=== PATIENT | female | born 1995 | race Caucasian/White ===

== ENCOUNTER 2021-09-02 16:26 | Emergency (ER) | payer MEDICAID, SELFPAY ==
[2021-09-02 16:45] VITALS: BP 119/68; PULSE 86; RESP 18; TEMP 37.3; O2SAT 100; BMI 41.1
[2021-09-02 17:36] LABS: MANUAL DIFF FLAG NO
[2021-09-02 17:58] LABS: Anion Gap 12 (12-20); Blood Urea Nitrogen 13 mg/dL (9-16); Calcium 9.4 mg/dL (8.4-10.2); Carbon Dioxide 27 mmol/L (22-29); Chloride 107 mmol/L (96-108); Creatinine Clr Calc Pharmacy 136.3; Estimated Glomerular Filt Rate > 60; Glucose Random 98 mg/dL (60-115); Potassium 4.7 mmol/L (3.3-5.1); Sodium 141 mmol/L (135-145)
[2021-09-02 18:06] LABS: Basophils Percent Auto 0.4 % (0-2); Eosinophils Absolute Auto 0.1 X10*3/uL (0.0-0.4); Eosinophils Percent Auto 0.8 % (0-4); Hematocrit 40.5 % (37.0-47.0); Hemoglobin 13.8 g/dl (12.0-16.0); Imm Gran Abs Auto 0.03 X10*3/uL (0.00-0.03); Imm Gran Pct Auto 0.4 % (0.0-0.4); Lymphocytes Absolute Auto 2.5 X10*3/uL (1.2-4.9); Lymphocytes Percent Auto 34.4 % (20-40); Mean Corpuscular HGB Conc 34.1 g/dl (31.0-35.0); Mean Corpuscular Hemoglobin 30.4 pg (27.0-33.0); Mean Corpuscular Volume 89.2 fL (80.0-98.0); Mean Platelet Volume 10.5 fL (9.4-12.3); Monocytes Absolute Auto 0.5 X10*3/uL (0.1-1.2); Monocytes Percent Auto 7.4 % (2-11); Neutrophils Absolute Auto 4.1 x10*3/uL (2.0-8.3); Neutrophils Percent Auto 56.6 % (45-73); Platelet Count 297 X10*3/uL (160-400); Red Blood Count 4.54 X10*6/uL (4.20-5.50); Red Cell Distribution Width 12.4 % (11.0-16.0); White Blood Count 7.2 X10*3/uL (4.8-10.8)
[2021-09-02 18:37] VITALS: BP 128/75; PULSE 92; RESP 17; TEMP 37.1; O2SAT 100
[2021-09-02 18:49] LABS: COVID-19 Test Positive (Negative); IDNOW Serial# 9DD0AD1C
[2021-09-02 19:04] LABS: HCG Quantitative < 2 mIU/mL
--- NOTE | 2021-09-02 19:19 | ED.NAVMDI ---
HPI - Nausea/Vomiting/Diarrhea General Chief complaint: Nausea/Vomiting/Diarrhea Stated complaint: nausea, dehydration, fatigue, diarrhea Time Seen by Provider: 09/02/21 18:39 Source: patient Mode of arrival: ambulatory Limitations: no limitations History of Present Illness HPI Narrative: Patient presents to ED for nausea and diarrhea for the past 3 days. Patient denies any abdominal pain, chest pain, shortness of breath, coughing, fever, or chills. Patient states she recently finished her clindamycin prescription. Patient not vaccinated against COVID Related Data Allergies Allergy/AdvReac Type Severity Reaction Status Date / Time No Known Allergies Allergy Verified 09/02/21 16:45 Review of Systems Review of Systems: Nausea, diarrhea Yes all other systems are reviewed and are negative [facility] Past Medical History Medical History (Updated 09/02/21 @ 19:27 by ASAEL Murillo) Anxiety Depression Gallstone Social History Social History Advance Directives: No Advance Directives Information Provided: Yes Patient : No Physical Exam Vital Signs: Vital Signs: Last Vital Signs Temp 98.7 F 09/02/21 18:37 Pulse 92 09/02/21 18:37 Resp 17 09/02/21 18:37 BP 128/75 09/02/21 18:37 Pulse Ox 100 09/02/21 18:37 BMI result Body Mass Index 41.1 Const: General: cooperative, healthy appearing, comfortable, no acute distress, well developed, alert, awake and Physically active Orientation/consciousness: oriented to person, oriented to place, oriented to time and patient oriented x3 HENMT: Head: Yes normal to inspection, Yes No palpable skull fracture present, Yes normocephalic and Yes atraumatic Eyes: General: appearance normal, both eyes and all related structures Neck: Neck: Yes normal visual inspection, Yes full ROM, Yes no lymphadenopathy, Yes no meningeal signs, Yes trachea midline, Yes supple, No anterior neck swelling and No tender Chest: Chest palpation & inspection: normal inspection of the chest and normal palpation of entire chest wall Resp: Effort & Inspection: normal respiratory effort and able to speak in complete sentences Auscultation: clear to auscultation bilaterally Cardio: Jugular venous distension: no JVD Heart sounds: S1 normal heart sound present and S2 normal heart sound present GI: Inspection: Yes normal to inspection and No abdominal wall ecchymosis Palpation (GI): Soft to palpation, not firm, nontender, no guarding and not rigid : General: No CVA tenderness and Yes no CVA tenderness Back/Spine/Pelvis: Back: no CVA tenderness, No CVA tenderness and No back tenderness Skin: General skin exam: no rashes or lesions noted and elasticity normal Neuro: General: oriented to person, oriented to place, oriented to time, patient oriented x3, gait normal, tone normal, moves all extremities, Normal light touch and pain sensation, no meningeal signs and CN's II-XI intact bilaterally Extrem: General: Yes normal to inspection and Yes full ROM Psych: Appearance: grossly normal, well kempt and not disheveled Course Course Course Narrative: Labs and Covid swab ordered. Reevaluation(s) Reevaluation #1: Patient labs are normal. Patient COVID swab positive. Patient well-appearing. Patient is not toxic appearing. Patient is not vaccinated. Patient informed her taking clindamycin and then having diarrhea after put at risk for C diff so sample was requested to test for C diff for patient states she is not able to give a sample. She was informed to follow-up with primary care provider to form that she took clindamycin having diarrhea so he could tested for C diff. Patient educated on self-isolation and respiratory distress. Patient informed to return to the ED immediately if she has any respiratory distress symptoms Time: 19:25 MDM - Nausea/Vomiting/Diarrhea MDM Narrative Medical decision making narrative: COVID Lab Data Result diagrams: 09/02/21 17:28 09/02/21 17:28 Labs: Lab Results 09/02/21 09/02/21 09/02/21 Range/Units 17:28 17:28 18:34 WBC 7.2 (4.8-10.8) X10*3/uL RBC 4.54 (4.20-5.50) X10*6/uL Hgb 13.8 (12.0-16.0) g/dl Hct 40.5 (37.0-47.0) % MCV 89.2 (80.0-98.0) fL MCH 30.4 (27.0-33.0) pg MCHC 34.1 (31.0-35.0) g/dl RDW 12.4 (11.0-16.0) % Plt Count 297 (160-400) X10*3/uL MPV 10.5 (9.4-12.3) fL Immature Gran % (Auto) 0.4 (0.0-0.4) % Neut % (Auto) 56.6 (45-73) % Lymph % (Auto) 34.4 (20-40) % [place] % (Auto) 7.4 (2-11) % Eos % (Auto) 0.8 (0-4) % Baso % (Auto) 0.4 (0-2) % Lymph # (Auto) 2.5 (1.2-4.9) X10*3/uL [place] # (Auto) 0.5 (0.1-1.2) X10*3/uL Eos # (Auto) 0.1 (0.0-0.4) X10*3/uL Baso # (Auto) 0.0 (0.0-0.2) X10*3/uL Abs Immat Gran (auto) 0.03 (0.00-0.03) X10*3/uL Absolute Neuts (auto) 4.1 (2.0-8.3) x10*3/uL Absolute Nucleated RBC 0.000 (0.0-0.012) X10*3/uL Nucleated RBC % (auto) 0.0 (0.0-0.2) /100WBC Sodium 141 (135-145) mmol/L Potassium 4.7 (3.3-5.1) mmol/L Chloride 107 (96-108) mmol/L Carbon Dioxide 27 (22-29) mmol/L Anion Gap 12 (12-20) BUN 13 (9-16) mg/dL Creatinine 0.76 (0.5-1.4) mg/dL Estim Creat Clear Calc 136.3 Estimated GFR > 60 Random Glucose 98 (60-115) mg/dL Calcium 9.4 (8.4-10.2) mg/dL Beta HCG, Quant < 2 mIU/mL COVID-19 (GE) Positive A (Negative) COVID-19 Clin Com See Note Discharge Plan Discharge Clinical Impression: COVID-19 Patient Disposition: Home, Self-Care Instructions: COVID-19 (Coronavirus Disease 2019) (ED) Additional Instructions: You came back positive for COVID-19. Recommend self-isolation. Return to the ED immediately for any chest pain, shortness of breath, weakness, dizziness, calf pain, coughing up blood, abdominal pain, or any other concerning symptoms. You just finish taking clindamycin and now have diarrhea will still recommend follow-up with primary care provider to test for C diff. Interventions: ED Discharge Assessment Last Done: 09/02/21 19:40 Discharge Date/Time: 09/02/21 19:42 Print Language: Yakut
== END 2021-09-02 19:42 | disposition home or self-care (01) ==
PROVIDERS: Physician Assistant; Emergency Provider Internal Medicine
DX: U07.1 COVID-19 (principal); R11.0 Nausea; R19.7 Diarrhea, unspecified
CPT/HCPCS: 36415; 80048; 84702; 85025; 87635; 99283; 99284

== ENCOUNTER 2022-06-10 23:08 | Emergency (ER) | payer MEDICAID, SELFPAY ==
[2022-06-10 23:24] VITALS: BP 123/77; PULSE 102; RESP 16; TEMP 36.7; O2SAT 100; BMI 51.5
[2022-06-10 23:56] LABS: Hematocrit 38.9 % (37.0-47.0); Hemoglobin 12.9 g/dl (12.0-16.0); Mean Corpuscular HGB Conc 33.2 g/dl (31.0-35.0); Mean Corpuscular Hemoglobin 29.3 pg (27.0-33.0); Mean Corpuscular Volume 88.4 fL (80.0-98.0); Platelet Count 230 X10*3/uL (160-400); Red Cell Distribution Width 12.8 % (11.0-16.0); White Blood Count 9.7 X10*3/uL (4.8-10.8)
[2022-06-11 00:16] LABS: Alanine Aminotransferase 35 U/L (0-31); Alkaline Phosphatase 64 U/L (39-117); Anion Gap 15 (12-20); Aspartate Amino Transferase 22 U/L (5-31); Bilirubin Direct < 0.2 mg/dL (0.0-0.5); Bilirubin Total < 0.2 mg/dL (0.0-1.0); Blood Urea Nitrogen 11 mg/dL (9-16); Calcium 8.9 mg/dL (8.4-10.2); Carbon Dioxide 24 mmol/L (22-29); Chloride 104 mmol/L (96-108); Creatinine Clr Calc Pharmacy 165.3; Estimated Glomerular Filt Rate > 60; Glucose Random 101 mg/dL (60-115); Lipase 25 U/L (8-78); Potassium 4.6 mmol/L (3.3-5.1); Sodium 138 mmol/L (135-145); Total Protein 7.4 g/dL (6.5-8.0)
[2022-06-11 01:03] VITALS: BP 124/84; PULSE 96; RESP 11; TEMP 37; O2SAT 100
[2022-06-11 03:58] VITALS: BP 121/83; PULSE 92; RESP 14; TEMP 36.9; O2SAT 99
[2022-06-11 04:09] LABS: Appearance Urine Clear; Color Urine Yellow; Glucose Urine UA Negative (Negative); Leukocyte Esterase Urine Negative (Negative); Nitrite Urine Negative (Negative); PH 6.5 (5.0-9.0); Specific Gravity - Urine <= 1.005 (1.005-1.025); Urine Blood Negative (Negative); Urine Ketones Negative (Negative); Urine Protein Negative (Neg-Trace)
[2022-06-11 04:11] LABS: UPreg QC Valid YES; Urine Pregnancy NEGATIVE (NEGATIVE)
[2022-06-11 04:14] LABS: Bacteria Urine Trace (None Seen); Hyaline Casts Urine 0-2 /LPF (0-2); RBC Urine 0-2 /HPF (0-2); Squamous Epithelial Cell Urine 0-2 /HPF (0-2); WBC Urine 0-5 /HPF (0-5)
--- NOTE | 2022-06-11 04:35 | ED_ITS ---
HPI - Abdominal Pain General Chief Complaint: Abdominal Pain Stated Complaint: abd pain Time Seen by Provider: 06/11/22 04:16 Source: patient Mode of arrival: ambulatory Limitations: no limitations History of Present Illness HPI narrative: 27-year-old female who presents emergency department for evaluation abdominal pain. The patient states that she ate a meat cheese and let us Taco around 13:00 hours. She states that 30 minutes later she developed abdominal pain. She points to her epigastric and right upper quadrant area when asked to localize the pain. She states the pain is a constant, bloated sensation which is 5/10 at its worst. She states that she has been getting this pain for approximately 1-2 years. She states that she always feels bloated but it is always worse after she eats food. She states the pain will often last a couple hours or occurred when she eats her next meal. She denied fever, chills, vomiting. She states she does have nausea associated with the pain. She states she has constant diarrhea. Patient states that she has known gallstones. She has also had an ovarian cyst in the past. MD elicited complaint: abdominal pain Pertinent past history: other (Gallstones, ovarian cyst) Onset (ago): hour(s) (16 our prior to evaluation) Pain Consistency: constant Location: epigastric and RUQ Severity: moderate Pain scale (0-10): 5 Quality: fullness (Bloated feeling) and other Radiation: none Migration to: no migration Exacerbating factors: eating Relieving factors: nothing Associated symptoms: nausea and diarrhea (Chronic) Related Data Previous Rx's Medication Instructions Recorded aluminum hydrox-magnesium carb 254 10 ml PO QID PRN dyspepsia #355 mL 06/11/22 mg-237.5 mg/5 mL oral suspension (Gaviscon Extra Strength) omeprazole 20 mg capsule,delayed 20 mg PO DAILY 30 days #30 caps 06/11/22 release Allergies Allergy/AdvReac Type Severity Reaction Status Date / Time No Known Allergies Allergy Verified 09/02/21 16:45 Review of Systems Review of Systems Yes all other systems are reviewed and are negative [facility] Past Medical History [facility] Narrative: Past medical history: Reviewed below, ADHD, ovarian cyst. Past surgical history: Left ovarian cyst removal. Social history: The patient smokes 1/2 pack of cigarettes per day times 12 years. She rarely drinks alcohol. She denies drug use. Medical History (Updated 06/11/22 @ 04:49 by Varun Duran MD) Anxiety Depression Gallstone Social History Social History Smoked in Last 30 Days: Yes Use of substances other than those prescribed or required for medical reasons: No Advance Directives: No Advance Directives Information Provided: No Physical Exam ED Vital Signs: Vital Signs - 24 hr 06/10/22 23:24 06/11/22 01:03 06/11/22 03:58 Temperature 98.0 F 98.6 F 98.4 F Pulse Rate 102 H 96 92 Respiratory Rate 16 11 L 14 Blood Pressure 123/77 124/84 121/83 Pulse Oximetry 100 100 99 Oxygen Delivery Method Room Air Room Air Room Air BMI result Body Mass Index 51.5 Const Other: Awake, alert, female patient, pleasant, cooperative, no distress, answers all questions appropriately, elevated BMI 51.5 HENMT Head: Yes normal to inspection, Yes normocephalic and Yes atraumatic Ears: external ears normal General nose exam: Normal external nose present Face and sinus: Yes normal facial exam Mouth: Normal oral and palatal mucosa present Throat: Yes posterior oropharynx normal Eyes General: appearance normal, both eyes and all related structures Pupils: Equal, round and reactive pupils present Neck Neck: Yes normal visual inspection, Yes no lymphadenopathy, Yes trachea midline and Yes supple Chest Chest palpation & inspection: normal inspection of the chest and normal palpation of entire chest wall Resp Effort & Inspection: normal respiratory effort and able to speak in complete sentences Auscultation: clear to auscultation bilaterally Cardio Rate: regular rate Rhythm: regular rhythm Heart sounds: S1 normal heart sound present, S2 normal heart sound present and no murmurs GI Inspection: Yes normal to inspection Palpation (GI): Soft to palpation, Tenderness to palpation present (GI) in the epigastrum (Moderate) and in the RUQ (Moderate) and no guarding Auscultation: normal bowel sounds General: Yes no CVA tenderness Back/Spine/Pelvis Back: no CVA tenderness Skin General skin exam: no rashes or lesions noted Neuro Cranial nerves: Yes CN's II-XII intact bilaterally and Yes Equal, round and reactive pupils present Cognition (Neuro): normal cognition Motor exam (neuro): 5/5 motor strength present throughout Extrem General: Yes normal to inspection Psych Appearance: grossly normal Speech and movement: Normal speech and movement present Affect: normal affect Attitude: cooperative Thought process: Normal thought process present Thought content: Normal thought content present Course Course Course Narrative: 27-year-old female who presents emergency department for evaluation of epigastric and right upper quadrant pain which occurred approximately 30 minutes after eating a cheese meat lettuce Taco. Patient states she has had similar pain over the past 1-2 years and she often gets this pain immediately after eating. She describes the pain is a bloated sensation which was 5/10. The pain was associated with nausea. She did not have any radiation of pain to her shoulder or back. She also states she has chronic diarrhea the patient's laboratory evaluation included a CBC, CMP and lipase, all of these tests were normal. Urinalysis was negative in your test was negative. Given the relatively fast onset of her pain after eating, I suspect that the pain is caused by gastritis I did discuss this with her. She does have known gallstones but I think that the pain is less likely to be caused by biliary colic. The patient was started on Prilosec 20 mg once a day for 1 month. She was also given a prescription for Gaviscon 1 dose after meals as needed for pain. Patient will need to follow-up with her PCP and our on-call audience development manager. Patient requested a prescription for anxiety. Told her that anxiety is complicated treat and that she needs to get a prescribing provider and she was given the outpatient number for [facility]. MDM - Abdominal Pain Lab Data Result diagrams: 06/10/22 23:49 06/10/22 23:49 Labs: Lab Results 06/10/22 06/10/22 06/11/22 Range/Units 23:49 23:49 04:02 WBC 9.7 (4.8-10.8) X10*3/uL RBC 4.40 (4.20-5.50) X10*6/uL Hgb 12.9 (12.0-16.0) g/dl Hct 38.9 (37.0-47.0) % MCV 88.4 (80.0-98.0) fL MCH 29.3 (27.0-33.0) pg MCHC 33.2 (31.0-35.0) g/dl RDW 12.8 (11.0-16.0) % Plt Count 230 (160-400) X10*3/uL MPV 11.0 (9.4-12.3) fL Absolute Nucleated RBC 0.000 (0.0-0.012) X10*3/uL Nucleated RBC % (auto) 0.0 (0.0-0.2) /100WBC Sodium 138 (135-145) mmol/L Potassium 4.6 (3.3-5.1) mmol/L Chloride 104 (96-108) mmol/L Carbon Dioxide 24 (22-29) mmol/L Anion Gap 15 (12-20) BUN 11 (9-16) mg/dL Creatinine 0.71 (0.5-1.4) mg/dL Estim Creat Clear Calc 165.3 Estimated GFR > 60 Random Glucose 101 (60-115) mg/dL Calcium 8.9 (8.4-10.2) mg/dL Total Bilirubin < 0.2 (0.0-1.0) mg/dL Direct Bilirubin < 0.2 (0.0-0.5) mg/dL AST 22 (5-31) U/L ALT 35 H (0-31) U/L Alkaline Phosphatase 64 (39-117) U/L Total Protein 7.4 (6.5-8.0) g/dL Albumin 4.0 (3.5-5.0) g/dL Lipase 25 (8-78) U/L Urine Color Yellow Urine Appearance Clear Urine pH 6.5 (5.0-9.0) Ur Specific [place] <= 1.005 (1.005-1.025) Urine Protein Negative (Neg-Trace) mg/dL Urine Glucose (UA) Negative (Negative) mg/dL Urine Ketones Negative (Negative) mg/dL Urine Blood Negative (Negative) Urine Nitrite Negative (Negative) Ur Leukocyte Esterase Negative (Negative) Urine RBC 0-2 (0-2) /HPF Urine WBC 0-5 (0-5) /HPF Ur Squamous Epith Cells 0-2 (0-2) /HPF Urine Bacteria Trace (None Seen) Hyaline Casts 0-2 (0-2) /LPF Urine Test (NEGATIVE) 06/11/22 Range/Units 04:02 WBC (4.8-10.8) X10*3/uL RBC (4.20-5.50) X10*6/uL Hgb (12.0-16.0) g/dl Hct (37.0-47.0) % MCV (80.0-98.0) fL MCH (27.0-33.0) pg MCHC (31.0-35.0) g/dl RDW (11.0-16.0) % Plt Count (160-400) X10*3/uL MPV (9.4-12.3) fL Absolute Nucleated RBC (0.0-0.012) X10*3/uL Nucleated RBC % (auto) (0.0-0.2) /100WBC Sodium (135-145) mmol/L Potassium (3.3-5.1) mmol/L Chloride (96-108) mmol/L Carbon Dioxide (22-29) mmol/L Anion Gap (12-20) BUN (9-16) mg/dL Creatinine (0.5-1.4) mg/dL Estim Creat Clear Calc Estimated GFR Random Glucose (60-115) mg/dL Calcium (8.4-10.2) mg/dL Total Bilirubin (0.0-1.0) mg/dL Direct Bilirubin (0.0-0.5) mg/dL AST (5-31) U/L ALT (0-31) U/L Alkaline Phosphatase (39-117) U/L Total Protein (6.5-8.0) g/dL Albumin (3.5-5.0) g/dL Lipase (8-78) U/L Urine Color Urine Appearance Urine pH (5.0-9.0) Ur Specific [place] (1.005-1.025) Urine Protein (Neg-Trace) mg/dL Urine Glucose (UA) (Negative) mg/dL Urine Ketones (Negative) mg/dL Urine Blood (Negative) Urine Nitrite (Negative) Ur Leukocyte Esterase (Negative) Urine RBC (0-2) /HPF Urine WBC (0-5) /HPF Ur Squamous Epith Cells (0-2) /HPF Urine Bacteria (None Seen) Hyaline Casts (0-2) /LPF Urine Test NEGATIVE (NEGATIVE) Discharge Plan Discharge Clinical Impression: Gastritis, Anxiety Patient Disposition: Home, Self-Care Instructions: Gastritis (ED) Additional Instructions: Your complete blood count was normal. Your comprehensive metabolic panel was normal including normal liver tests and normal pancreas test. Your Urinalysis was unremarkable. At this time I believe that your pain is caused by too much acid in your stomach causing inflammation of the stomach lining (gastritis) Take Prilosec (omeprazole) 20 mg pills, 1 pill once a day for 1 month. This medication shuts off your acid production and lets the inflammation in your stomach and esophagus heal. Take extra-strength Gaviscon 1 dose after meals if you have pain for the next 1- 2 weeks. Follow-up with your doctor in 2 days. Please return to the emergency department if your symptoms get worse or if you develop any symptoms that are concerning to you. If your pain is not better and you continue to have pain despite completing 1 month of Prilosec then you will need to follow-up with a audience development manager. Call our audience development manager on calls office make a follow-up appointment. For help with your anxiety call the [facility] outpatient number Prescriptions: New omeprazole 20 mg capsule,delayed release(DR/EC) 20 mg PO DAILY 30 Days Qty: 30 0RF Gaviscon Extra Strength 254-237.5 mg/5 mL suspension 10 ml PO QID PRN (Reason: dyspepsia) Qty: 355 0RF Referrals: Maynor Bermudez MD [Physician] - 2 weeks (Epigastric right upper quadrant pain, known gallstones, suspect gastritis, started on Prilosec and Gaviscon)
--- NOTE | 2022-06-11 04:52 | PC.NURSE ---
pt pwd at time of discharge. pt ambulates independently. pt provided with discharge packet at time of discharge. pt verbalized understanding of discharge plan.
== END 2022-06-11 04:56 | disposition home or self-care (01) ==
PROVIDERS: Emergency Provider Emergency Medicine Emergency Medical Services
DX: K29.70 Gastritis, unspecified, without bleeding (principal); R10.31 Right lower quadrant pain; F41.1 Generalized anxiety disorder; F43.0 Acute stress reaction; Z79.899 Other long term (current) drug therapy
CPT/HCPCS: 36415; 80053; 81001; 81025; 82248; 83690; 85027; 99283; 99284

== ENCOUNTER 2024-03-15 18:51 | Emergency (ER) | payer MEDICAID, SELFPAY ==
--- NOTE | 2024-03-15 | ECG_ITS ---
Test Reason : DIZZINESS Blood Pressure : / mmHG Vent. Rate : 070 BPM Atrial Rate : 070 BPM P-R Int : 160 ms QRS Dur : 092 ms QT Int : 384 ms P-R-T Axes : 040 011 009 degrees QTc Int : 414 ms Normal sinus rhythm with sinus arrhythmia Low voltage QRS Borderline ECG No previous ECGs available Referred By: Generic ED Physician Electronically Signed By:HIPOLITO MANRIQUEZ MD
[2024-03-15 19:07] VITALS: BP 138/80; PULSE 98; O2SAT 99
[2024-03-15 19:15] VITALS: BP 127/75; PULSE 90; RESP 18; TEMP 36.5; O2SAT 94; BMI 45.4
--- NOTE | 2024-03-15 19:16 | ED.GENADULT ---
HPI - General Adult General Chief complaint: General Medical Stated complaint: Dizzy, lightheaded, anxiety Time Seen by Provider: 03/15/24 22:24 Source: patient Mode of arrival: ambulatory Limitations: no limitations History of Present Illness ED Provider: sarah DALY narrative: Patient complaining of weakness dizziness nausea for last 3 days with multiple complaints no fever no chills under increased stress at home with poor sleep no vomiting had some loose bowels earlier no urinary complaints Related Data Previous Rx's ?Medication ?Instructions ?Recorded aluminum hydrox-magnesium carb 254 10 ml PO QID PRN dyspepsia #355 mL 06/11/22 mg-237.5 mg/5 mL oral suspension (Gaviscon Extra Strength) omeprazole 20 mg capsule,delayed 20 mg PO DAILY 30 days #30 caps 06/11/22 release Allergies Allergy/AdvReac Type Severity Reaction Status Date / Time No Known Allergies Allergy Verified 03/15/24 19:18 Review of Systems Review of Systems: Yes all other systems are reviewed and are negative [facility] Past Medical History Medical History Depression Anxiety Gallstone Social History Social History Advance Directives: No Advance Directives Information Provided: Yes Do you have a plan to hurt others: No Plan Physical Exam ED Vital Signs: Vital Signs - 24 hr 03/15/24 19:15 03/15/24 23:03 Temperature 97.7 F 99.0 F Pulse Rate 90 66 Respiratory Rate 18 20 Blood Pressure 127/75 107/71 Pulse Oximetry 94 99 Oxygen Delivery Method Room Air Room Air BMI result Body Mass Index 45.4 Appearance: Alert. Oriented X3. No acute distress. Eyes: No pallor or icterus ENT: Pharynx normal. Oral Mucosa moist Neck: Normal inspection. Neck supple. CVS: Normal heart rate and rhythm. Pulses normal. Respiratory: No respiratory distress. Equal air entry bilateral, Abdomen: Soft and nontender. Bowel sounds are present, no mass palpable, no CVA tenderness Skin: Skin warm and dry. Normal skin color. Normal skin turgor. Extremities: No lower extremity edema. No calf tenderness Neuro: Oriented X 3. No motor deficit. Course Course Course Narrative: This is a Rapid Medical Examination (RME) performed by Ananya Noble PA-C in triage. Full HPI, ROS, assessment and treatment plan per primary provider in the Main ED. 29 yo female BIBA for eval of generalized weakness, dizziness, nausea, diarrhea x2 days. no known sick contacts. admits to tongue piercing one week ago. has been taking advril around the clock. is unsure if this is contributing to her symptoms. denies chest pain, sob, dyspnea, syncope. + well appearing in triage. ambulating with steady gait. exam is nonfocal. Plan: labs, ekg, viral serology Medical Decision Making Medical Decision Making [facility] Narrative: Patient has multiple complaints seems to be anxious likely the anxiety as a cause workup is negative will discharge patient home advised to continue medication Differential Diagnosis Differential Diagnoses: The differential diagnosis associated with the presentation includes UTI/viral syndrome/anxiety/insomnia Lab Data [facility] Lab Attestation statement: I reviewed the patient's lab results. 03/15/24 19:56 03/15/24 19:56 Labs: Lab Results 03/15/24 03/15/24 Range/Units 19:56 22:51 WBC 7.5 (4.8-10.8) X10*3/uL RBC 4.11 L (4.20-5.50) X10*6/uL Hgb 12.6 (12.0-16.0) g/dl Hct 35.2 L (37.0-47.0) % MCV 85.6 (80.0-98.0) fL MCH 30.7 (27.0-33.0) pg MCHC 35.8 H (31.0-35.0) g/dl RDW 12.9 (11.0-16.0) % Plt Count 327 D (160-400) X10*3/uL MPV 9.6 (9.4-12.3) fL Immature Gran % (Auto) 0.4 (0.0-0.4) % Neut % (Auto) 62.3 (45-73) % Lymph % (Auto) 29.1 (20-40) % [place] % (Auto) 7.1 (2-11) % Eos % (Auto) 0.7 (0-4) % Baso % (Auto) 0.4 (0-2) % Lymph # (Auto) 2.2 (1.2-4.9) X10*3/uL [place] # (Auto) 0.5 (0.1-1.2) X10*3/uL Eos # (Auto) 0.1 (0.0-0.4) X10*3/uL Baso # (Auto) 0.0 (0.0-0.2) X10*3/uL Abs Immat Gran (auto) 0.03 (0.00-0.03) X10*3/uL Absolute Neuts (auto) 4.7 (2.0-8.3) x10*3/uL Absolute Nucleated RBC 0.000 (0.0-0.012) X10*3/uL Nucleated RBC % (auto) 0.0 (0.0-0.2) /100WBC PT 12.8 (11.1-13.3) SEC INR 1.1 (0.9-1.1) Sodium 142 (135-145) mmol/L Potassium 4.0 (3.3-5.1) mmol/L Chloride 106 (96-108) mmol/L Carbon Dioxide 24 (22-29) mmol/L Anion Gap 16 (12-20) BUN 9 (9-16) mg/dL Creatinine 0.76 (0.5-1.4) mg/dL Estim Creat Clear Calc 140.5 Estimated GFR > 60 Random Glucose 101 (60-115) mg/dL Calcium 9.4 (8.4-10.2) mg/dL Magnesium 1.9 (1.6-2.6) mg/dL Total Bilirubin 0.2 (0.0-1.0) mg/dL AST 14 (5-31) U/L ALT 17 (0-31) U/L Alkaline Phosphatase 57 (39-117) U/L Troponin I High Sens < 2.7 (<3.5-17.0) ng/L Total Protein 7.7 (6.5-8.0) g/dL Albumin 4.0 (3.5-5.0) g/dL Lipase 18 (8-78) U/L Beta HCG, Quant < 2 mIU/mL Urine Color Yellow Urine Appearance Cloudy Urine pH 6.0 (5.0-9.0) Ur Specific [place] 1.015 (1.005-1.025) Urine Protein Negative (Neg-Trace) mg/dL Urine Glucose (UA) Negative (Negative) mg/dL Urine Ketones Negative (Negative) mg/dL Urine Blood Negative (Negative) Urine Nitrite Negative (Negative) Ur Leukocyte Esterase Negative (Negative) Influenza Type A (PCR) NEGATIVE (Negative) Influenza Type B (PCR) NEGATIVE (Negative) RSV RNA Qual (PCR) NEGATIVE (Negative) SARS-CoV-2 RNA (RT-PCR) NEGATIVE (Negative) Discharge Plan Discharge Clinical Impression: Dizziness Patient Disposition: Home, Self-Care Instructions: Dizziness (ED) Additional Instructions: Drink plenty of fluids Your blood workup is normal Follow with your PCP as needed Prescriptions: No Action omeprazole 20 mg capsule,delayed release(DR/EC) 20 mg PO DAILY 30 Days Qty: 30 0RF Gaviscon Extra Strength 254-237.5 mg/5 mL suspension 10 ml PO QID PRN (Reason: dyspepsia) Qty: 355 0RF Print Language: American
[2024-03-15 20:03] LABS: MANUAL DIFF FLAG NO
[2024-03-15 20:04] LABS: Basophils Percent Auto 0.4 % (0-2); Eosinophils Absolute Auto 0.1 X10*3/uL (0.0-0.4); Eosinophils Percent Auto 0.7 % (0-4); Hematocrit 35.2 % (37.0-47.0); Hemoglobin 12.6 g/dl (12.0-16.0); Imm Gran Abs Auto 0.03 X10*3/uL (0.00-0.03); Imm Gran Pct Auto 0.4 % (0.0-0.4); Lymphocytes Absolute Auto 2.2 X10*3/uL (1.2-4.9); Lymphocytes Percent Auto 29.1 % (20-40); Mean Corpuscular HGB Conc 35.8 g/dl (31.0-35.0); Mean Corpuscular Hemoglobin 30.7 pg (27.0-33.0); Mean Corpuscular Volume 85.6 fL (80.0-98.0); Mean Platelet Volume 9.6 fL (9.4-12.3); Monocytes Absolute Auto 0.5 X10*3/uL (0.1-1.2); Monocytes Percent Auto 7.1 % (2-11); Neutrophils Absolute Auto 4.7 x10*3/uL (2.0-8.3); Neutrophils Percent Auto 62.3 % (45-73); Platelet Count 327 X10*3/uL (160-400); Red Blood Count 4.11 X10*6/uL (4.20-5.50); Red Cell Distribution Width 12.9 % (11.0-16.0); White Blood Count 7.5 X10*3/uL (4.8-10.8)
[2024-03-15 20:15] LABS: INTERNATIONAL NORM RATIO 1.1 (0.9-1.1); Prothrombin Time 12.8 SEC (11.1-13.3)
[2024-03-15 20:19] LABS: Alanine Aminotransferase 17 U/L (0-31); Alkaline Phosphatase 57 U/L (39-117); Anion Gap 16 (12-20); Aspartate Amino Transferase 14 U/L (5-31); Bilirubin Total 0.2 mg/dL (0.0-1.0); Blood Urea Nitrogen 9 mg/dL (9-16); Calcium 9.4 mg/dL (8.4-10.2); Carbon Dioxide 24 mmol/L (22-29); Chloride 106 mmol/L (96-108); Creatinine Clr Calc Pharmacy 140.5; Estimated Glomerular Filt Rate > 60; Glucose Random 101 mg/dL (60-115); Lipase 18 U/L (8-78); Magnesium 1.9 mg/dL (1.6-2.6); Sodium 142 mmol/L (135-145); Total Protein 7.7 g/dL (6.5-8.0)
[2024-03-15 20:27] LABS: HCG Quantitative < 2 mIU/mL
[2024-03-15 20:28] LABS: Troponin-I High Sensitivity < 2.7 ng/L (<3.5-17.0)
[2024-03-15 20:46] LABS: Influenza A PCR NEGATIVE (Negative); Influenza B PCR NEGATIVE (Negative); Resp Syncy Virus RNA Qual PCR NEGATIVE (Negative); SARS COV2 PCR INHOUSE NEGATIVE (Negative)
[2024-03-15 23:03] VITALS: BP 107/71; PULSE 66; RESP 20; TEMP 37.2; O2SAT 99
[2024-03-15 23:04] LABS: Appearance Urine Cloudy; Color Urine Yellow; Glucose Urine UA Negative (Negative); Leukocyte Esterase Urine Negative (Negative); Nitrite Urine Negative (Negative); Specific Gravity - Urine 1.015 (1.005-1.025); Urine Blood Negative (Negative); Urine Ketones Negative (Negative); Urine Protein Negative (Neg-Trace)
[2024-03-15 23:23] VITALS: BP 107/71; PULSE 66; RESP 20; TEMP 37.2; O2SAT 99
== END 2024-03-15 23:22 | disposition home or self-care (01) ==
PROVIDERS: Physician Assistant Medical; Emergency Provider Internal Medicine
DX: R42 Dizziness and giddiness (principal); R11.0 Nausea; R53.1 Weakness; Z03.818 Encounter for observation for suspected exposure to other biological agents ruled out
CPT/HCPCS: 0241U; 36415; 80053; 81003; 83690; 83735; 84484; 84702; 85025; 85610; 93005; 99283; 99284

== ENCOUNTER → 2024-03-15 19:09 | Outpatient (BNV) | payer MEDICAID, SELFPAY | PROVIDERS: Emergency Provider Internal Medicine; Visit Provider Internal Medicine Cardiovascular Disease | DX: R42 Dizziness and giddiness (principal) | CPT/HCPCS: 93010 ==